=== PATIENT | male | born 1955 | race Caucasian/White ===

== ENCOUNTER 2022-05-05 11:09 | Outpatient (CLI) | payer MEDICARE, OTHER, SELFPAY | END 2022-05-05 11:10 | disposition home or self-care (01) | LOC: OP CLINIC 11:11 | PROVIDERS: PCP Family Medicine; Visit Provider Internal Medicine | DX: Z12.11 Encounter for screening for malignant neoplasm of colon (principal); Z86.010 Personal history of colon polyps | CPT/HCPCS: 45378; J2250; J2405; J3010 ==

== ENCOUNTER 2022-07-19 15:53 | Outpatient (REF) | payer MEDICARE, OTHER, SELFPAY ==
[2022-07-19 16:07] LABS: Basophils Absolute Auto 0.06 K/uL (0.00-0.30); Basophils Percent Auto 0.8 % (0.0-3.0); Eosinophils Percent Auto 9.9 % (0.0-7.0); Hemoglobin* 14.2 gm/dL (13.5-17.5); Immature Granulocytes Abs Auto 0.04 K/uL (0.00-0.30); Immature Granulocytes Pct Auto 0.5 %; Lymphocytes Absolute Auto 1.55 K/uL (0.90-2.90); Lymphocytes Percent Auto 20.7 % (20-44); Mean Corpuscular HGB Conc 32 gm/dL (32-36); Mean Corpuscular Hemoglobin 30 pg (26-34); Mean Corpuscular Volume 92 fL (80-100); Neutrophils Absolute Auto 4.21 K/uL (1.7-7.0); Neutrophils Percent Auto 56.1 % (42.0-72.0); Platelet Count* 281 K/uL (140-440); RDW Coefficient of Variation % 14.9 % (11.5-15.5); Red Blood Count 4.76 m/uL (4.30-5.90)
[2022-07-19 16:09] LABS: Slide Review Reflex No
[2022-07-19 16:16] LABS: C Reactive Protein* 0.9 mg/dL (0.5-1.0)
[2022-07-19 16:56] LABS: Erythrocyte SedimentationRate* 12 mm/hr (2-15)
[2022-07-21 16:33] LABS: Rheumatoid Factor <10 IU/mL (0-14)
[2022-07-21 22:54] LABS: Anti-Nuclear Ab(ANA)IgG ELISA Detected (None Detected)
[2022-07-23 12:08] LABS: ANA Pattern Speckled; Antinuclear AntibodyHEp-2 Detected (<1:80)
== END 2022-07-19 15:54 | disposition home or self-care (01) ==
LOC: NPINS 15:53
PROVIDERS: PCP Family Medicine; Visit Provider Internal Medicine Pulmonary Disease
DX: J84.10 Pulmonary fibrosis, unspecified (principal)
CPT/HCPCS: 85025; 85651; 86039; 86140; 86431

== ENCOUNTER 2022-07-25 13:42 | Outpatient (REF) | payer MEDICARE, OTHER, SELFPAY ==
[2022-07-25 15:53] LABS: C Reactive Protein* 1.2 mg/dL (0.5-1.0)
[2022-07-25 15:56] LABS: Basophils Absolute Auto 0.06 K/uL (0.00-0.30); Basophils Percent Auto 0.8 % (0.0-3.0); Hematocrit 42.8 % (37.0-53.0); Hemoglobin* 13.9 gm/dL (13.5-17.5); Immature Granulocytes Abs Auto 0.05 K/uL (0.00-0.30); Immature Granulocytes Pct Auto 0.6 %; Lymphocytes Absolute Auto 1.76 K/uL (0.90-2.90); Lymphocytes Percent Auto 22.5 % (20-44); Mean Corpuscular HGB Conc 33 gm/dL (32-36); Mean Corpuscular Hemoglobin 30 pg (26-34); Mean Corpuscular Volume 92 fL (80-100); Monocytes Percent Auto 10.7 % (0.0-11.0); Neutrophils Absolute Auto 4.34 K/uL (1.7-7.0); Neutrophils Percent Auto 55.4 % (42.0-72.0); Platelet Count* 292 K/uL (140-440); Red Blood Count 4.65 m/uL (4.30-5.90); White Blood Count* 7.83 K/uL (4.50-11.00)
[2022-07-25 16:00] LABS: Slide Review Reflex No
[2022-07-25 16:07] LABS: Procalcitonin* 0.06 ng/mL (<0.50)
[2022-07-25 16:38] LABS: Erythrocyte SedimentationRate* 10 mm/hr (2-15)
== END 2022-07-25 13:43 | disposition home or self-care (01) ==
LOC: NPINS 13:42
PROVIDERS: PCP Family Medicine; Visit Provider Orthopaedic Surgery
DX: R76.9 Abnormal immunological finding in serum, unspecified (principal); R53.83 Other fatigue; M1A.00X1 Idiopathic chronic gout, unspecified site, with tophus (tophi); M54.59 Other low back pain; Z96.641 Presence of right artificial hip joint; M25.552 Pain in left hip; M25.551 Pain in right hip
CPT/HCPCS: 82495; 83018; 84145; 85025; 85651; 86140

== ENCOUNTER 2023-03-22 16:08 | Outpatient (CLI) | payer MEDICARE, OTHER, SELFPAY | END 2023-03-22 16:09 | disposition home or self-care (01) | PROVIDERS: PCP Family Medicine; Visit Provider Nurse Practitioner Family | DX: M10.9 Gout, unspecified (principal) | CPT/HCPCS: 84550; 85651 ==

== ENCOUNTER 2023-07-16 10:08 | Outpatient (CLI) | payer MEDICARE, OTHER, SELFPAY | END 2023-07-16 10:09 | disposition home or self-care (01) | PROVIDERS: PCP Family Medicine; Visit Provider Family Medicine | DX: Z00.00 Encounter for general adult medical examination without abnormal findings (principal); E78.5 Hyperlipidemia, unspecified; I10 Essential (primary) hypertension; N40.0 Benign prostatic hyperplasia without lower urinary tract symptoms; M10.9 Gout, unspecified; Z12.5 Encounter for screening for malignant neoplasm of prostate | CPT/HCPCS: 80053; 80061; 84550; G0103 ==

== ENCOUNTER 2024-07-17 08:41 | Outpatient (CLI) | payer MEDICARE, OTHER, SELFPAY | END 2024-07-17 08:42 | disposition home or self-care (01) | PROVIDERS: PCP Family Medicine; Visit Provider Family Medicine | DX: E78.5 Hyperlipidemia, unspecified (principal); I10 Essential (primary) hypertension; I25.10 Atherosclerotic heart disease of native coronary artery without angina pectoris; N40.0 Benign prostatic hyperplasia without lower urinary tract symptoms; Z12.5 Encounter for screening for malignant neoplasm of prostate; Z13.21 Encounter for screening for nutritional disorder | CPT/HCPCS: 80053; 80061; 82306; 84443; 84550; G0103 ==